=== PATIENT | female | born 1980 | race Caucasian/White ===

== ENCOUNTER 2020-03-26 15:38 | Emergency (ER) | payer MEDICAID ==
[~2020-03-26] VITALS: Ht 167.6 cm; Wt 83.9 kg
[2020-03-26 16:30] VITALS: BP 118/59
[2020-03-26] MEDS ORDERED: HYDROcodone-ACET 5/325MG TAB PO ONE (17:00)
== END 2020-03-26 17:27 | disposition home or self-care (01) ==
LOC: ER 15:38
DX: R07.89 Other chest pain (principal); E11.9 Type 2 diabetes mellitus without complications
CPT/HCPCS: 71046; 93005

== ENCOUNTER 2020-06-09 17:38 | Emergency (ER) | payer MEDICAID ==
[~2020-06-09] VITALS: Ht 165.1 cm; Wt 81.6 kg
[2020-06-09 18:34] LABS: Basophils # (auto) 0.2 10 ^3/uL (0-0.2); Basophils % (auto) 1.3 % (0.0-2.0); Eosinophils # (auto) 0.1 10 ^3/uL (0-0.8); Eosinophils % (auto) 0.7 % (0.0-7.0); Hematocrit 39.6 % (36.0-46.0); Hemoglobin 13.4 g/dL (12.2-16.2); Lymphocytes # (auto) 2.1 10 ^3/uL (0.4-5.4); Lymphocytes % (auto) 16.5 % (10.0-50.0); Mean Corpuscular Hemoglobin 29.4 pg (28.0-32.0); Mean Corpuscular Hgb Conc. 33.9 g/dL (32.0-36.0); Mean Corpuscular Volume 86.6 fL (80.0-100.0); Monocytes # (auto) 1.1 10 ^3/uL (0-1.3); Monocytes % (auto) 8.4 % (0.0-12.0); Neutrophils # (auto) 9.3 10 ^3/uL (1.6-8.6); Neutrophils % (auto) 73.1 % (37.0-80.0); Platelet Count (auto) 342 10^3/uL (140-450); Red Blood Cells 4.57 10^6/uL (4.0-5.20); Red Cell Distribution Width 12.3 % (11.8-14.3); White Blood Cell 12.8 10^3/uL (4.4-10.8)
[2020-06-09 18:42] LABS: Albumin 3.2 g/dL (3.4-5.0); Calcium 9.8 mg/dL (8.5-10.1); Magnesium 2.4 mg/dL (1.6-2.6); Potassium 3.5 mmol/L (3.5-5.1)
[2020-06-09 18:46] LABS: BUN/Creatinine Ratio 13.8; Bilirubin, Total 0.4 mg/dL (0.2-1.0); Total Protein 8.3 g/dL (6.4-8.2)
[2020-06-09 19:37] LABS: Urine Bacteria FEW /hpf (None Seen); Urine Blood 2+ /uL (Negative); Urine Mucus FEW (None Seen); Urine Specific Gravity 1.028 (1.001-1.035); Urine WBC 71 /hpf (0 - 5); Urine WBC Clumps PRESENT /hpf (None Seen)
[2020-06-09] MEDS ORDERED: cefTRIAXone 1GM/50ML D5W 50 ML IV ONE (20:15)
[2020-06-09] MEDS ORDERED: SODIUM CHLORIDE 0.9% 1,000 ML IV ONE (20:15)
[2020-06-09] MEDS ORDERED: ACETAMINOPHEN/CODEINE#3 (300/30mg) TAB PO ONE (20:15)
[2020-06-09 21:55] VITALS: BP 147/99
== END 2020-06-09 22:07 | disposition home or self-care (01) ==
LOC: ER 17:38
DX: N39.0 Urinary tract infection, site not specified (principal); M79.89 Other specified soft tissue disorders; M79.672 Pain in left foot; E11.65 Type 2 diabetes mellitus with hyperglycemia; E86.0 Dehydration; R03.0 Elevated blood-pressure reading, without diagnosis of hypertension
CPT/HCPCS: 36415; 73630; 80053; 81001; 82962; 83735; 83880; 84484; 85025; 93970; 96365; 99285; J0696

== ENCOUNTER 2020-06-17 21:53 | Emergency (ER) | payer MEDICAID ==
[~2020-06-17] VITALS: Ht 165.1 cm; Wt 81.6 kg
[2020-06-17] MEDS ORDERED: ACCU-CHEK COMFORT CURVE STRIP VI ONE (23:00)
[2020-06-17] MEDS ORDERED: SODIUM CHLORIDE 0.9% 1,000 ML IV ONE (23:15)
[2020-06-18] MEDS ORDERED: ONDANSETRON HCL 4 MG/2 ML VIAL IV ONE
[2020-06-18] MEDS ORDERED: MORPHINE SULFATE 4 MG/ML SYR/VIAL IV ONE
[2020-06-18 00:54] LABS: Hematocrit 39.3 % (36.0-46.0); Hemoglobin 13.2 g/dL (12.2-16.2); Mean Corpuscular Hemoglobin 28.7 pg (28.0-32.0); Mean Corpuscular Hgb Conc. 33.7 g/dL (32.0-36.0); Mean Corpuscular Volume 85.2 fL (80.0-100.0); Platelet Count (auto) 438 10^3/uL (140-450); Red Blood Cells 4.61 10^6/uL (4.0-5.20); Red Cell Distribution Width 12.8 % (11.8-14.3); White Blood Cell 13.7 10^3/uL (4.4-10.8)
[2020-06-18 01:02] LABS: INR 0.98 (0.9-1.15)
[2020-06-18 01:07] LABS: Basophils % (manual) 0 (0.0-2.0); Blast Cells 0; Metamyelocytes % 0; Myelocytes % 0; Promyelocytes % 0; Reactive Lymphocytes 0
[2020-06-18 01:10] LABS: Albumin 2.8 g/dL (3.4-5.0); Anion Gap 10 (5-15); Blood Urea Nitrogen 10 mg/dL (7-18); Calcium 8.1 mg/dL (8.5-10.1); Carbon Dioxide 27 mmol/L (21-32); Chloride 95 mmol/L (98-107); Glucose 398 mg/dL (74-106); Potassium 3.6 mmol/L (3.5-5.1); Sodium 132 mmol/L (136-145)
[2020-06-18 01:17] LABS: Alkaline Phosphatase 140 U/L (45-117); Bilirubin, Total 0.4 mg/dL (0.2-1.0); Total Protein 8.2 g/dL (6.4-8.2)
[2020-06-18 01:30] LABS: Band Neutrophils % (manual) 3; Lymphocytes % (manual) 12 (10.0-50.0)
[2020-06-18 01:31] LABS: Eosinophils % (manual) 1 (0-7); Monocytes % (manual) 4 (0-12)
[2020-06-18 01:36] LABS: Alanine Aminotransferase 31 U/L (13-56); Aspartate Aminotransferase 16 U/L (15-37); BUN/Creatinine Ratio 10.5; GFR African American 85 mL/min; GFR Non-African American 70 mL/min
[2020-06-18] MEDS ORDERED: SODIUM CHLORIDE 0.9% 1,000 ML IV ONE (03:15)
[2020-06-18] MEDS ORDERED: MORPHINE SULF INJ 2 MG/ML SYRINGE 1ML IV ONE (03:15)
[2020-06-18] MEDS ORDERED: InsuLIN REG 1unit/0.01ml Soln (100units/ml) IV ONE (03:45)
[2020-06-18] MEDS ORDERED: FUROSEMIDE 20 MG/2 ML VIAL IV ONE (03:45)
[2020-06-18 03:55] LABS: Alcohol, Urine < 3.0 mg/dL (0-10); Amphetamine Screen, Urine NEGATIVE (NEGATIVE); Barbiturate Scree,Urine NEGATIVE (NEGATIVE); Benzodiazephine Screen, Urine NEGATIVE (NEGATIVE); Cocaine Screen, Urine NEGATIVE (NEGATIVE); Opiate Scree,Urine POSITIVE (NEGATIVE); Phencyclidine Screen, Urine NEGATIVE (NEGATIVE); Urine Bacteria NONE SEEN /hpf (None Seen); Urine Blood 2+ /uL (Negative); Urine Specific Gravity 1.032 (1.001-1.035); Urine WBC 1 /hpf (0 - 5)
[2020-06-18 04:03] LABS: Cannabinoid Screen, Urine POSITIVE (NEGATIVE)
[2020-06-18 07:45] VITALS: BP 121/81
== END 2020-06-18 08:50 | disposition home or self-care (01) ==
LOC: ER 21:53
DX: R53.1 Weakness (principal); E87.1 Hypo-osmolality and hyponatremia; D72.829 Elevated white blood cell count, unspecified; E11.69 Type 2 diabetes mellitus with other specified complication; R60.0 Localized edema; Z20.828 Contact with and (suspected) exposure to other viral communicable diseases; E11.9 Type 2 diabetes mellitus without complications; I10 Essential (primary) hypertension; E78.5 Hyperlipidemia, unspecified
CPT/HCPCS: 36415; 71045; 80053; 80307; 81001; 82728; 82962; 83605; 83880; 84484; 85007; 85027; 85610; 85730; 87040; 87426; 93005; 96361; 96374; 96375; 96376; 99285; C9803; J1815; J1940; J2270; J2405; J7030; U0003

== ENCOUNTER 2020-06-23 12:51 | Inpatient (IN) | payer MEDICAID ==
[~2020-06-23] VITALS: Ht 167.6 cm; Wt 83.1 kg
[2020-06-23] MEDS ORDERED: SODIUM CHLORIDE 0.9% 1,000 ML IV ONE ×3 (13:00→17:15)
[2020-06-23 14:00] LABS: Basophils # (auto) 0.2 10 ^3/uL (0-0.2); Basophils % (auto) 1.4 % (0.0-2.0); Eosinophils # (auto) 0.1 10 ^3/uL (0-0.8); Eosinophils % (auto) 0.4 % (0.0-7.0); Hematocrit 37.3 % (36.0-46.0); Hemoglobin 13.1 g/dL (12.2-16.2); Lymphocytes # (auto) 1.3 10 ^3/uL (0.4-5.4); Lymphocytes % (auto) 10.3 % (10.0-50.0); Mean Corpuscular Hemoglobin 29.5 pg (28.0-32.0); Mean Corpuscular Hgb Conc. 35.3 g/dL (32.0-36.0); Mean Corpuscular Volume 83.8 fL (80.0-100.0); Monocytes # (auto) 0.9 10 ^3/uL (0-1.3); Monocytes % (auto) 6.6 % (0.0-12.0); Neutrophils # (auto) 10.6 10 ^3/uL (1.6-8.6); Neutrophils % (auto) 81.3 % (37.0-80.0); Nucleated Red Blood Cells % 0.2 %; Platelet Count (auto) 450 10^3/uL (140-450); Red Blood Cells 4.45 10^6/uL (4.0-5.20); Red Cell Distribution Width 12.6 % (11.8-14.3)
[2020-06-23 14:25] LABS: Albumin 2.3 g/dL (3.4-5.0); Anion Gap 8 (5-15); Blood Urea Nitrogen 7 mg/dL (7-18); Calcium 8.9 mg/dL (8.5-10.1); Carbon Dioxide 28 mmol/L (21-32); Chloride 97 mmol/L (98-107); Glucose 321 mg/dL (74-106); Potassium 3.7 mmol/L (3.5-5.1); Sodium 133 mmol/L (136-145)
[2020-06-23 14:32] LABS: Alanine Aminotransferase 21 U/L (13-56); Alkaline Phosphatase 149 U/L (45-117); Aspartate Aminotransferase 19 U/L (15-37); BUN/Creatinine Ratio 7.3; Bilirubin, Total 0.8 mg/dL (0.2-1.0); GFR African American 84 mL/min; GFR Non-African American 70 mL/min; Lactate Dehydrogenase 201 U/L (84-246)
[2020-06-23 14:33] LABS: CRP High Sensitivity > 19 mg/dL (< 0.3)
[2020-06-23] MEDS ORDERED: KETOROLAC TROMETH 30 MG/ML 1ML VIAL IV ONE (16:00)
[2020-06-23] MEDS ORDERED: MORPHINE SULF INJ 2 MG/ML SYRINGE 1ML IV PRN (17:15)
[2020-06-23] MEDS ORDERED: NITROGLYCERIN 0.4 MG SL TAB SL PRN (17:15)
[2020-06-23] MEDS ORDERED: ACETAMINOPHEN 500 MG TAB PO PRN (17:15)
[2020-06-23] MEDS ORDERED: ONDANSETRON HCL 4 MG/2 ML VIAL IV PRN (17:15)
[2020-06-23] MEDS ORDERED: DEXTROSE (50%) 50ML SYRG IV PRN (17:30)
[2020-06-23] MEDS: ACCU-CHEK COMFORT CURVE STRIP VI SCH ×2 (18:03→23:28)
[2020-06-23] MEDS: InsuLIN REG 1unit/0.01ml Soln (100units/ml) SC SCH ×2 (18:04→23:28)
[2020-06-23 18:29] LABS: Urine Bacteria FEW /hpf (None Seen); Urine Blood 1+ /uL (Negative); Urine Specific Gravity 1.009 (1.001-1.035); Urine WBC 1 /hpf (0 - 5)
[2020-06-23 18:54] LABS: Amphetamine Screen, Urine NEGATIVE (NEGATIVE); Barbiturate Scree,Urine NEGATIVE (NEGATIVE); Benzodiazephine Screen, Urine NEGATIVE (NEGATIVE); Cannabinoid Screen, Urine POSITIVE (NEGATIVE); Cocaine Screen, Urine NEGATIVE (NEGATIVE); Opiate Scree,Urine NEGATIVE (NEGATIVE); Phencyclidine Screen, Urine NEGATIVE (NEGATIVE)
[2020-06-23 20:30] VITALS: BP 126/82
--- NOTE | 2020-06-23 20:30 | NUR ---
pt arrival via wheelchair. pt transferred self to hospital bed. pt attached to [facility].
[2020-06-23] MEDS ORDERED: METF-372 PO (22:02)
[2020-06-23] MEDS ORDERED: GLIP10TA9 PO (22:02)
--- NOTE | 2020-06-23 23:27 | NUR ---
[facility] SENT TO LAB
[2020-06-23] MEDS: FAMOTIDINE 20 MG TAB PO SCH (23:28)
[2020-06-24 05:00] VITALS: BP 116/82
--- NOTE | 2020-06-24 05:00 | NUR ---
endorsed care to Yaniv Dunn on [facility]. pt transferred to [id number].
[2020-06-24] MEDS: ACCU-CHEK COMFORT CURVE STRIP VI SCH ×4 (06:07→23:48)
[2020-06-24] MEDS: InsuLIN REG 1unit/0.01ml Soln (100units/ml) SC SCH ×4 (06:07→23:49)
[2020-06-24 07:13] LABS: Lymphocytes # (auto) 1.1 10 ^3/uL (0.4-5.4); Lymphocytes % (auto) 8.2 % (10.0-50.0); Red Blood Cells 4.07 10^6/uL (4.0-5.20)
[2020-06-24 07:16] LABS: Basophils # (auto) 0.2 10 ^3/uL (0-0.2); Basophils % (auto) 1.2 % (0.0-2.0); Eosinophils # (auto) 0 10 ^3/uL (0-0.8); Eosinophils % (auto) 0.3 % (0.0-7.0); Hematocrit 34.3 % (36.0-46.0); Hemoglobin 11.9 g/dL (12.2-16.2); Mean Corpuscular Hemoglobin 29.3 pg (28.0-32.0); Mean Corpuscular Hgb Conc. 34.8 g/dL (32.0-36.0); Mean Corpuscular Volume 84.1 fL (80.0-100.0); Monocytes # (auto) 0.7 10 ^3/uL (0-1.3); Monocytes % (auto) 5.4 % (0.0-12.0); Neutrophils % (auto) 84.9 % (37.0-80.0); Platelet Count (auto) 466 10^3/uL (140-450); Red Cell Distribution Width 12.7 % (11.8-14.3)
[2020-06-24 07:48] LABS: Calcium 8.8 mg/dL (8.5-10.1); Potassium 3.2 mmol/L (3.5-5.1)
[2020-06-24 07:49] LABS: BUN/Creatinine Ratio 9.1
--- NOTE | 2020-06-24 08:00 | NUR ---
OPENING SHIFT NOTE ASSUMED CARE OF PATIENT AWAKE AND ALERT. NO S/S OF DISTRESS NOTED OR COMPLAINTS OF PAIN. PATIENT UPDATED ON POC FOR THE DAY AND ALL QUESTIONS ANSWERED. BED IS IN LOWEST, LOCKED POSITION WITH SIDE RAILS UP X2 AND CALL LIGHT WITHIN REACH. WILL CONTINUE TO MONITOR Q1H AND PRN.
[2020-06-24 08:54] LABS: Cholesterol 182 mg/dL (< 200)
[2020-06-24 08:57] LABS: HDL Cholesterol 39 mg/dL (40-59); LDL Cholesterol 123 mg/dL (< 100); Triglycerides 158 mg/dL (< 150)
[2020-06-24 09:00] VITALS: BP 122/77
[2020-06-24] MEDS: cefTRIAXone 1GM/50ML D5W 50 ML IV SCH (09:00)
[2020-06-24] MEDS: FAMOTIDINE 20 MG TAB PO SCH ×2 (10:28→22:17)
[2020-06-24] MEDS: AZITHROMYCIN 250 MG TAB PO SCH (10:28)
[2020-06-24 13:11] VITALS: BP 105/63
[2020-06-24 16:47] VITALS: BP 101/59
--- NOTE | 2020-06-24 19:30 | NUR ---
Opening Shift Note Assumed care of patient, awake and alert. No S/S of distress/SOB noted. Instructed on POC and to call for assist PRN. Bed is in lowest locked position with bed rails up x2 and call light is within reach of the patient.
[2020-06-24] MEDS: HYDROcodone-ACET 5/325MG TAB PO PRN (20:12)
[2020-06-24] MEDS ORDERED: INSULIN LANTUS (GLARGINE) 1 /0.01ml (100units/ml) SC SCH (22:00)
[2020-06-24] MEDS: NAPROXEN 500 MG TAB PO SCH (22:16)
[2020-06-25 00:12] VITALS: BP 105/67
[2020-06-25] MEDS: ACCU-CHEK COMFORT CURVE STRIP VI SCH ×2 (05:38→11:48)
[2020-06-25 05:39] VITALS: BP 111/68
[2020-06-25] MEDS: InsuLIN REG 1unit/0.01ml Soln (100units/ml) SC SCH ×2 (05:44→11:49)
[2020-06-25 08:40] LABS: Calcium 8.9 mg/dL (8.5-10.1); Potassium 3.3 mmol/L (3.5-5.1)
[2020-06-25 08:45] LABS: Albumin 2.1 g/dL (3.4-5.0)
[2020-06-25 08:47] LABS: Bilirubin, Total 0.2 mg/dL (0.2-1.0); Total Protein 6.6 g/dL (6.4-8.2)
[2020-06-25 09:00] VITALS: BP 115/75
[2020-06-25] MEDS: cefTRIAXone 1GM/50ML D5W 50 ML IV SCH (09:49)
[2020-06-25] MEDS: NAPROXEN 500 MG TAB PO SCH (09:50)
[2020-06-25] MEDS: AZITHROMYCIN 250 MG TAB PO SCH (09:50)
[2020-06-25] MEDS: FAMOTIDINE 20 MG TAB PO SCH (09:50)
[2020-06-25 13:00] VITALS: BP 98/66
[2020-06-25] MEDS: HYDROcodone-ACET 5/325MG TAB PO PRN (14:50)
[2020-06-25] MEDS ORDERED: NAP500T PO (15:33)
[2020-06-25] MEDS ORDERED: GAB100C PO (15:33)
[2020-06-25] MEDS ORDERED: ACET300T4 PO (15:33)
[2020-06-25] MEDS ORDERED: FAMO-12 PO (15:33)
[2020-06-25] MEDS ORDERED: SIMV40TA96 PO (15:38)
[2020-06-25] MEDS ORDERED: AMOX500T86 PO (16:13)
[2020-06-25 16:56] VITALS: BP 141/91
--- NOTE | 2020-06-25 17:09 | NUR ---
Discharge instructions given as ordered. Encourage to follow up with PMD as instructed. All questions and concerns addressed. Patient verbalized understanding. IV removed with catheter intact, pressure dressing applied. Telemetry unit returned to ICU. Patient taken to vehicle via wheelchair with all personal belongings, accompanied by staff. No distress noted at time of departure.
[2020-06-26 13:11] LABS: Hepatitis A Ab IgM Negative; Hepatitis B Core IgM Negative; Hepatitis B Surface Antigen Negative (Negative); Hepatitis C Antibody Negative (Negative)
== END 2020-06-25 17:10 | disposition home or self-care (01) | DRG 351 ==
LOC: EDBD 12:51 → ER 12:51 → TELE 12:52 → TELE-EAST 20:30 → TELE-CENTR 06-24 05:11
PROVIDERS: ADMIT Hospitalist; ATTEND Hospitalist
DX: M06.4 Inflammatory polyarthropathy (principal); E11.65 Type 2 diabetes mellitus with hyperglycemia; J02.0 Streptococcal pharyngitis; B95.0 Streptococcus, group A, as the cause of diseases classified elsewhere; E66.9 Obesity, unspecified; E78.00 Pure hypercholesterolemia, unspecified; E86.0 Dehydration; I10 Essential (primary) hypertension; I25.10 Atherosclerotic heart disease of native coronary artery without angina pectoris; Z20.828 Contact with and (suspected) exposure to other viral communicable diseases; M79.7 Fibromyalgia; N39.0 Urinary tract infection, site not specified; Z90.710 Acquired absence of both cervix and uterus; Z79.4 Long term (current) use of insulin; Z82.49 Family history of ischemic heart disease and other diseases of the circulatory system; Z85.42 Personal history of malignant neoplasm of other parts of uterus; Z90.711 Acquired absence of uterus with remaining cervical stump; Z79.84 Long term (current) use of oral hypoglycemic drugs; Z68.30 Body mass index [BMI] 30.0-30.9, adult
CPT/HCPCS: 36415; 71045; 73120; 73560; 73620; 80048; 80053; 80061; 80074; 80307; 81001; 81025; 82010; 82728; 82962; 83036; 83615; 83880; 84439; 84443; 84484; 84550; 85025; 85652; 86141; 86200; 86225; 86235; 87081; 87086; 87426; 87804; 87880; 93005; 96361; 96374; G0378; J0696; J1815; J1885; J2405

== ENCOUNTER 2021-03-13 14:40 | Emergency (ER) | payer MEDICAID ==
[~2021-03-13] VITALS: Ht 167.6 cm; Wt 81.6 kg
[~2021-03-13 14:40] MED LIST: ACET300T4 PO; AMOX500T86 PO; FAMO-12 PO; GAB100C PO; GLIP10TA9 PO; METF-372 PO; NAP500T PO; SIMV40TA2 PO
[2021-03-13 14:42] VITALS: BP 135/90
[2021-03-13] MEDS ORDERED: SODIUM CHLORIDE 0.9% 1,000 ML IV ONE (15:00)
[2021-03-13 15:40] LABS: Basophils # (auto) 0.1 10 ^3/uL (0-0.2); Basophils % (auto) 0.8 % (0.0-2.0); Eosinophils # (auto) 0.1 10 ^3/uL (0-0.8); Eosinophils % (auto) 1.6 % (0.0-7.0); Hematocrit 44.7 % (36.0-46.0); Hemoglobin 15.7 g/dL (12.2-16.2); Lymphocytes # (auto) 2.2 10 ^3/uL (0.4-5.4); Lymphocytes % (auto) 27.5 % (10.0-50.0); Mean Corpuscular Hemoglobin 30.5 pg (28.0-32.0); Mean Corpuscular Hgb Conc. 35.2 g/dL (32.0-36.0); Mean Corpuscular Volume 86.7 fL (80.0-100.0); Monocytes # (auto) 0.6 10 ^3/uL (0-1.3); Monocytes % (auto) 7.6 % (0.0-12.0); Neutrophils % (auto) 62.5 % (37.0-80.0); Nucleated Red Blood Cells % 0.3 %; Platelet Count (auto) 290 10^3/uL (140-450); Red Blood Cells 5.15 10^6/uL (4.0-5.20)
[2021-03-13 15:46] LABS: Alanine Aminotransferase 43 U/L (13-56); Albumin 3.6 g/dL (3.4-5.0); Anion Gap 4 (5-15); Blood Urea Nitrogen 12 mg/dL (7-18); Calcium 9.3 mg/dL (8.5-10.1); Carbon Dioxide 30 mmol/L (21-32); Chloride 100 mmol/L (98-107); Glucose 333 mg/dL (74-106); Potassium 3.8 mmol/L (3.5-5.1); Sodium 134 mmol/L (136-145)
[2021-03-13 15:51] LABS: Alkaline Phosphatase 111 U/L (45-117); Aspartate Aminotransferase 26 U/L (15-37); BUN/Creatinine Ratio 12.5; Bilirubin, Total 0.5 mg/dL (0.2-1.0); GFR African American 84 mL/min; GFR Non-African American 69 mL/min; Total Protein 8.2 g/dL (6.4-8.2)
== END 2021-03-13 17:33 | disposition home or self-care (01) ==
LOC: ER 14:40
DX: R55 Syncope and collapse (principal); E86.0 Dehydration; E11.9 Type 2 diabetes mellitus without complications; F17.210 Nicotine dependence, cigarettes, uncomplicated; Z90.710 Acquired absence of both cervix and uterus; Z79.899 Other long term (current) drug therapy; Z79.2 Long term (current) use of antibiotics
CPT/HCPCS: 36415; 70450; 80053; 84484; 85025; 93005

== ENCOUNTER → 2021-09-13 | Emergency (ER) | payer MEDICAID ==
[~2021-09-13] VITALS: Ht 165.1 cm; Wt 74.4 kg
[~2021-09-13] MED LIST changes: +CIPR-273 PO; +PERCOT PO
[2021-09-13 17:07] LABS: Basophils # (auto) 0.1 10 ^3/uL (0-0.2); Basophils % (auto) 0.7 % (0.0-2.0); Eosinophils # (auto) 0.1 10 ^3/uL (0-0.8); Eosinophils % (auto) 0.8 % (0.0-7.0); Hematocrit 41.6 % (36.0-46.0); Hemoglobin 14.2 g/dL (12.2-16.2); Lymphocytes # (auto) 2.2 10 ^3/uL (0.4-5.4); Lymphocytes % (auto) 26.2 % (10.0-50.0); Mean Corpuscular Hemoglobin 29.5 pg (28.0-32.0); Mean Corpuscular Hgb Conc. 34.1 g/dL (32.0-36.0); Mean Corpuscular Volume 86.4 fL (80.0-100.0); Monocytes # (auto) 0.6 10 ^3/uL (0-1.3); Monocytes % (auto) 7.3 % (0.0-12.0); Neutrophils # (auto) 5.5 10 ^3/uL (1.6-8.6); Red Blood Cells 4.82 10^6/uL (4.0-5.20); Red Cell Distribution Width 12.4 % (11.8-14.3); White Blood Cell 8.4 10^3/uL (4.4-10.8)
[2021-09-13 17:23] LABS: Albumin 3.8 g/dL (3.4-5.0); Calcium 8.9 mg/dL (8.5-10.1); Potassium 3.3 mmol/L (3.5-5.1)
[2021-09-13 17:26] LABS: BUN/Creatinine Ratio 11.5; Bilirubin, Total 0.6 mg/dL (0.2-1.0); Total Protein 7.4 g/dL (6.4-8.2)
[2021-09-13 20:45] LABS: Urine Bacteria MOD /hpf (None Seen); Urine Blood 1+ /uL (Negative); Urine Mucus FEW (None Seen); Urine Specific Gravity 1.025 (1.001-1.035); Urine WBC 65 /hpf (0 - 5)
[2021-09-13 20:50] VITALS: BP 134/85
== END | disposition home or self-care (01) ==
LOC: ER 14:19
DX: K29.00 Acute gastritis without bleeding (principal); K80.20 Calculus of gallbladder without cholecystitis without obstruction; F17.210 Nicotine dependence, cigarettes, uncomplicated; E11.9 Type 2 diabetes mellitus without complications; Z90.710 Acquired absence of both cervix and uterus; Z32.02 Encounter for pregnancy test, result negative; Z98.51 Tubal ligation status
CPT/HCPCS: 36415; 74176; 80053; 81001; 81025; 85025

== ENCOUNTER 2022-06-23 11:16 | Inpatient (IN) | payer MEDICAID ==
[~2022-06-23] VITALS: Ht 165.1 cm; Wt 77.1 kg
[2022-06-23] MEDS ORDERED: LIDOCAINE VISCOUS 2% 15ML UD PO ONE (11:30)
[2022-06-23] MEDS ORDERED: ONDANSETRON HCL 4 MG/2 ML VIAL IV ONE (11:30)
[2022-06-23] MEDS ORDERED: FAMOTIDINE (10MG/ML) 2ML VL IV ONE (11:30)
[2022-06-23] MEDS ORDERED: ALUM & MAG HYDROX-SIMETH LIQ(MAALOX) 30 ML PO ONE (11:30)
[2022-06-23 12:59] LABS: Basophils # (auto) 0.1 10 ^3/uL (0-0.2); Basophils % (auto) 0.6 % (0.0-2.0); Eosinophils # (auto) 0 10 ^3/uL (0-0.8); Hematocrit 44.7 % (36.0-46.0); Hemoglobin 15.2 g/dL (12.2-16.2); Lymphocytes % (auto) 5.6 % (10.0-50.0); Mean Corpuscular Hemoglobin 28.9 pg (28.0-32.0); Mean Corpuscular Hgb Conc. 33.9 g/dL (32.0-36.0); Mean Corpuscular Volume 85.2 fL (80.0-100.0); Monocytes % (auto) 5.7 % (0.0-12.0); Neutrophils # (auto) 14.9 10 ^3/uL (1.6-8.6); Neutrophils % (auto) 88.1 % (37.0-80.0); Red Blood Cells 5.25 10^6/uL (4.0-5.20); Red Cell Distribution Width 12.7 % (11.8-14.3)
[2022-06-23] MEDS ORDERED: SODIUM CHLORIDE 0.9% 1,000 ML IV ONE (13:00)
[2022-06-23 13:07] LABS: BUN/Creatinine Ratio 20.3; Calcium 9.7 mg/dL (8.5-10.1); Potassium 3.3 mmol/L (3.5-5.1)
[2022-06-23 13:09] LABS: Bilirubin, Total 0.9 mg/dL (0.2-1.0); Total Protein 8.3 g/dL (6.4-8.2)
[2022-06-23] MEDS ORDERED: LACTATED RINGER'S 1,000 ML IV ONE (13:15)
[2022-06-23] MEDS ORDERED: POTASSIUM EFFERVESENT TAB 25 MEQ PO ONE (13:45)
[2022-06-23] MEDS ORDERED: SOD CHL 0.9%/ KCL 20MEQ 1,000 ML IV ONE (13:45)
[2022-06-23] MEDS ORDERED: MORPHINE SULFATE INJ 2 MG/ml SYRG IV PRN (16:00)
[2022-06-23] MEDS ORDERED: NITROGLYCERIN 0.4 MG SL TAB SL PRN (16:00)
[2022-06-23] MEDS ORDERED: cefTRIAXone 1GM/50ML D5W 50 ML IV ONE (16:30)
[2022-06-23] MEDS: ONDANSETRON HCL 4 MG/2 ML VIAL IV PRN ×2 (16:40→22:54)
[2022-06-23 16:53] LABS: Cholesterol 279 mg/dL (< 200)
[2022-06-23 16:55] LABS: HDL Cholesterol 62 mg/dL (40-59); LDL Cholesterol 186 mg/dL (< 100); Triglycerides 240 mg/dL (< 150)
[2022-06-23] MEDS: MORPHINE SULFATE INJ 2 MG/ml SYRG IV PRN ×2 (17:32→22:57)
[2022-06-23] MEDS: metroNIDAZOLE 500MG/100ML 100 ML IV SCH (17:32)
[2022-06-23] MEDS ORDERED: hydrALAZINE HCL 20 MG/ML VL IV ONE ×2 (20:45→22:45)
[2022-06-24 00:25] VITALS: BP 169/104
[2022-06-24] MEDS: metroNIDAZOLE 500MG/100ML 100 ML IV SCH ×4 (00:31→21:28)
[2022-06-24] MEDS: MORPHINE SULFATE INJ 2 MG/ml SYRG IV PRN ×4 (03:56→23:44)
[2022-06-24] MEDS: ONDANSETRON HCL 4 MG/2 ML VIAL IV PRN ×3 (03:58→19:48)
[2022-06-24] MEDS: hydrALAZINE HCL 20 MG/ML VL IV PRN ×2 (03:59→22:15)
[2022-06-24 05:00] VITALS: BP 164/104
[2022-06-24 06:32] LABS: Basophils # (auto) 0.1 10 ^3/uL (0-0.2); Basophils % (auto) 0.3 % (0.0-2.0); Eosinophils # (auto) 0 10 ^3/uL (0-0.8); Eosinophils % (auto) 0.1 % (0.0-7.0); Hematocrit 41.4 % (36.0-46.0); Hemoglobin 14.2 g/dL (12.2-16.2); Lymphocytes # (auto) 1.2 10 ^3/uL (0.4-5.4); Lymphocytes % (auto) 7.4 % (10.0-50.0); Mean Corpuscular Hemoglobin 29.5 pg (28.0-32.0); Mean Corpuscular Hgb Conc. 34.4 g/dL (32.0-36.0); Mean Corpuscular Volume 85.6 fL (80.0-100.0); Monocytes # (auto) 1.7 10 ^3/uL (0-1.3); Monocytes % (auto) 10.7 % (0.0-12.0); Neutrophils # (auto) 12.9 10 ^3/uL (1.6-8.6); Neutrophils % (auto) 81.5 % (37.0-80.0); Nucleated Red Blood Cells % 0.1 %; Red Blood Cells 4.83 10^6/uL (4.0-5.20); Red Cell Distribution Width 12.5 % (11.8-14.3); White Blood Cell 15.8 10^3/uL (4.4-10.8)
[2022-06-24 06:35] LABS: INR 0.94 (0.9-1.15); Partial Thromboplastin Time 30.4 sec (24.6-33.4)
[2022-06-24 06:40] LABS: Potassium 3.2 mmol/L (3.5-5.1)
[2022-06-24 06:49] LABS: Albumin 3.3 g/dL (3.4-5.0); Bilirubin, Total 0.6 mg/dL (0.2-1.0); Calcium 8.2 mg/dL (8.5-10.1); Total Protein 7.2 g/dL (6.4-8.2)
[2022-06-24 07:14] LABS: Urine Bacteria FEW /hpf (None Seen); Urine Blood 2+ /uL (Negative); Urine Specific Gravity 1.022 (1.001-1.035); Urine WBC 4 /hpf (0 - 5)
[2022-06-24 08:00] VITALS: BP 158/104
[2022-06-24] MEDS: PANTOPRAZOLE 40 MG/10 ML VIAL INJ IV SCH (08:40)
[2022-06-24] MEDS ORDERED: cefTRIAXone 1GM/50ML D5W 50 ML IV SCH (09:00)
[2022-06-24] MEDS ORDERED: POTASSIUM CHL 20MEQ/100ML 100 ML IV ONE (09:45)
[2022-06-24] MEDS ORDERED: MEPERIDINE HCL (50 MG/ML) 1 ML VIAL ONE (10:54)
[2022-06-24] MEDS ORDERED: DexAMETHasone SOD PHOS 10MG/1ML VIAL INJ ONE (10:54)
[2022-06-24] MEDS ORDERED: MIDAZOLAM HCL 2MG/2ML 2ml VIAL (1mg/ml) ONE (10:54)
[2022-06-24] MEDS ORDERED: fentaNYL CITRATE 100 MCG/2 ML VL ONE (10:54)
[2022-06-24] MEDS ORDERED: SUCCINYLCHOLINE CHLORIDE 20 MG/ML 10ML VIAL IV ONE (12:04)
[2022-06-24] MEDS ORDERED: ceFAZolin 1GM/50ML 50 ML IV ONE (12:04)
[2022-06-24] MEDS ORDERED: PROPOFOL 10 MG/ML 20 ML IV ONE (12:19)
[2022-06-24] MEDS ORDERED: BUPIVACAINE W/ EPINEPH 0.25% INJ 50ML MDV IJ ONE (12:30)
[2022-06-24] MEDS ORDERED: LABETALOL HCL 5 MG/ML 4ML SYRINGE IV PRN (12:45)
[2022-06-24] MEDS ORDERED: MIDAZOLAM HCL 2MG/2ML 2ml VIAL (1mg/ml) IV PRN (12:45)
[2022-06-24] MEDS ORDERED: ACCU-CHEK COMFORT CURVE STRIP VI ONE (12:45)
[2022-06-24] MEDS ORDERED: MORPHINE SULFATE 4 MG/ML SYR/VIAL IV PRN (12:45)
[2022-06-24] MEDS ORDERED: ePHEDrine SULFATE 50 MG/ML AMP IV PRN (12:45)
[2022-06-24] MEDS ORDERED: ONDANSETRON HCL 4 MG/2 ML VIAL IV PRN (12:45)
[2022-06-24] MEDS ORDERED: METOCLOPRAMIDE HCL 5MG/ml INJ 2ml VIAL IV PRN (12:45)
[2022-06-24] MEDS ORDERED: D5W/SOD CHL 0.45%/KCL 20MEQ 1,000 ML IV SCH (12:45)
[2022-06-24] MEDS ORDERED: HYDROmorphone HCL 2 MG/ML VL/or syr IV PRN (12:45)
[2022-06-24] MEDS ORDERED: SUGAMMADEX 200mg/2ml Vial (100MG/ML) IV ONE (13:18)
[2022-06-24] MEDS ORDERED: ROCURONIUM 10MG/ML 10ML VIAL IV ONE (13:23)
[2022-06-24] MEDS ORDERED: PHENYLEPHRINE HCL 10 MG/ML VL IV ONE (13:23)
[2022-06-24] MEDS ORDERED: ONDANSETRON HCL 4 MG/2 ML VIAL IV ONE (13:23)
[2022-06-24] MEDS ORDERED: InsuLIN REG 1unit/0.01ml Soln (100units/ml) SC ONE (13:30)
[2022-06-24] MEDS ORDERED: InsuLIN REG 1unit/0.01ml Soln (100units/ml) ONE (13:33)
[2022-06-24] MEDS ORDERED: LABETALOL HCL 5 MG/ML 4ML SYRINGE IV ONE ×2 (14:08→14:10)
[2022-06-24 16:00] VITALS: BP 139/91
[2022-06-24 23:41] VITALS: BP 166/98
[2022-06-25] MEDS: metroNIDAZOLE 500MG/100ML 100 ML IV SCH ×2 (05:37→13:41)
[2022-06-25] MEDS: MORPHINE SULFATE INJ 2 MG/ml SYRG IV PRN ×3 (05:38→15:53)
[2022-06-25 05:48] VITALS: BP 156/97
[2022-06-25 06:36] LABS: Basophils # (auto) 0 10 ^3/uL (0-0.2); Basophils % (auto) 0.2 % (0.0-2.0); Eosinophils # (auto) 0 10 ^3/uL (0-0.8); Hematocrit 36.8 % (36.0-46.0); Lymphocytes # (auto) 1.2 10 ^3/uL (0.4-5.4); Lymphocytes % (auto) 8.8 % (10.0-50.0); Mean Corpuscular Hemoglobin 30.2 pg (28.0-32.0); Mean Corpuscular Hgb Conc. 35.4 g/dL (32.0-36.0); Mean Corpuscular Volume 85.3 fL (80.0-100.0); Monocytes # (auto) 1.4 10 ^3/uL (0-1.3); Monocytes % (auto) 10.6 % (0.0-12.0); Neutrophils # (auto) 10.9 10 ^3/uL (1.6-8.6); Neutrophils % (auto) 80.4 % (37.0-80.0); Nucleated Red Blood Cells % 0.1 %; Red Blood Cells 4.31 10^6/uL (4.0-5.20); Red Cell Distribution Width 12.6 % (11.8-14.3); White Blood Cell 13.6 10^3/uL (4.4-10.8)
[2022-06-25 07:00] LABS: Potassium 3.8 mmol/L (3.5-5.1)
[2022-06-25 07:11] LABS: Albumin 3.1 g/dL (3.4-5.0); BUN/Creatinine Ratio 13.5; Bilirubin, Total 0.4 mg/dL (0.2-1.0); Calcium 7.7 mg/dL (8.5-10.1); Total Protein 6.6 g/dL (6.4-8.2)
[2022-06-25 07:50] VITALS: BP_SYST 126; BP_SYST 99; BP_DIAS 49; BP_DIAS 73
[2022-06-25 08:00] VITALS: BP 126/73
[2022-06-25] MEDS: PANTOPRAZOLE 40 MG/10 ML VIAL INJ IV SCH (08:58)
[2022-06-25] MEDS ORDERED: cefTRIAXone 1GM/50ML D5W 50 ML IV SCH (09:00)
[2022-06-25 12:00] VITALS: BP 172/102
[2022-06-25 16:00] VITALS: BP 155/104
[2022-06-25 18:00] VITALS: BP 100/55
== END 2022-06-25 18:45 | disposition home or self-care (01) | DRG 710 ==
LOC: ER 11:16 → OVERFLOW 15:52 → WEST WING 23:54
PROVIDERS: ADMIT Registered Nurse; ATTEND Internal Medicine
PROC: 0FT44ZZ Resection of Gallbladder, Percutaneous Endoscopic Approach (ICD-10-PCS; principal; 2022-06-24 11:51)
DX: A41.9 Sepsis, unspecified organism (principal); N17.0 Acute kidney failure with tubular necrosis; K80.00 Calculus of gallbladder with acute cholecystitis without obstruction; E87.3 Alkalosis; E11.65 Type 2 diabetes mellitus with hyperglycemia; D72.829 Elevated white blood cell count, unspecified; E66.9 Obesity, unspecified; E78.5 Hyperlipidemia, unspecified; E86.0 Dehydration; K29.00 Acute gastritis without bleeding; Z20.822 Contact with and (suspected) exposure to COVID-19; K21.9 Gastro-esophageal reflux disease without esophagitis; Z98.891 History of uterine scar from previous surgery; Z68.28 Body mass index [BMI] 28.0-28.9, adult; Z79.4 Long term (current) use of insulin
CPT/HCPCS: 36415; 36600; 76705; 80053; 80061; 81001; 81025; 82010; 82270; 82805; 82962; 83036; 83690; 83735; 83930; 84702; 85025; 85610; 85730; 86850; 86900; 86901; 87045; 87086; 87427; 96374; 96375; C9113; G0378; J0330; J0690; J0696; J1100; J1815; J2250; J2405; J2704; J3480; J3490

== ENCOUNTER 2022-11-02 00:12 | Emergency (ER) | payer MEDICAID ==
[~2022-11-02] VITALS: Ht 172.7 cm; Wt 75.0 kg
[~2022-11-02 00:12] MED LIST changes: -ACET300T4 PO; -AMOX500T86 PO; -CIPR-273 PO; -FAMO-12 PO; -GAB100C PO; -NAP500T PO; -PERCOT PO; -SIMV40TA2 PO
[2022-11-02 00:19] VITALS: BP 178/96
== END 2022-11-03 03:00 | disposition left against medical advice (07) ==
LOC: ER 00:12 → EDBD 00:12 → ER 11-03 03:00
DX: R11.2 Nausea with vomiting, unspecified (principal); Z53.21 Procedure and treatment not carried out due to patient leaving prior to being seen by health care provider